=== PATIENT | female | born 1965 | race Caucasian/White ===

== ENCOUNTER → 2017-01-02 | Outpatient (CLI) | payer BC ==
[~2017-01-02] MED LIST: CHOL10003 PO; PHEN37.53 PO; TOPI25TA32 PO
[2017-01-02 16:02] LABS: BLOOD UREA NITROGEN 14 mg/dL (7-18)
== END | disposition home or self-care (01) ==
LOC: STAR 14:48
PROVIDERS: ATTEND Surgery
DX: Z01.818 Encounter for other preprocedural examination (principal); C50.811 Malignant neoplasm of overlapping sites of right female breast
CPT/HCPCS: 36415; 80048

== ENCOUNTER → 2017-01-03 | Outpatient (CLI) | payer BC | END | disposition home or self-care (01) | LOC: PETCFH 07:53 | PROVIDERS: ATTEND Surgery | DX: C50.811 Malignant neoplasm of overlapping sites of right female breast (principal) | CPT/HCPCS: 78306; A9503 ==

== ENCOUNTER → 2017-01-03 | Outpatient (CLI) | payer BC ==
[~2017-01-03] MED LIST changes: +OMNIPAQUE 350 MG/ML, 100ML BOTTLE ONE
== END | disposition home or self-care (01) ==
LOC: CFH 07:50
PROVIDERS: ATTEND Surgery
DX: C50.811 Malignant neoplasm of overlapping sites of right female breast (principal); N63 Unspecified lump in breast; Z90.49 Acquired absence of other specified parts of digestive tract; M41.86 Other forms of scoliosis, lumbar region
CPT/HCPCS: 71260; 74177; Q9967

== ENCOUNTER → 2017-01-09 | Outpatient (CLI) | payer BC ==
[~2017-01-09] MED LIST changes: +GADOBUTROL 10 MMOL/10 ML VIAL ONE; -OMNIPAQUE 350 MG/ML, 100ML BOTTLE ONE
== END | disposition home or self-care (01) ==
LOC: CFH 11:29
PROVIDERS: ATTEND Internal Medicine Hematology & Oncology
DX: Z51.11 Encounter for antineoplastic chemotherapy (principal); C50.211 Malignant neoplasm of upper-inner quadrant of right female breast; R59.0 Localized enlarged lymph nodes; I36.1 Nonrheumatic tricuspid (valve) insufficiency
CPT/HCPCS: 93306; A9585; C8905

== ENCOUNTER 2017-01-10 06:54 | Day surgery (SDC) | payer BC ==
[~2017-01-10] VITALS: Ht 157.5 cm; Wt 79.5 kg
[~2017-01-10 06:54] MED LIST changes: -GADOBUTROL 10 MMOL/10 ML VIAL ONE
[2017-01-10] MEDS ORDERED: HEPARIN 1,000 UNITS/ML, 10ML ONE (07:19)
[2017-01-10] MEDS ORDERED: BUPIVACAINE/PF-EPI 0.5% 1:200K ONE (07:19)
[2017-01-10 07:22] VITALS: BP 134/87
[2017-01-10] MEDS ORDERED: LIDOCAINE 1%, 2ML ONE (07:35)
[2017-01-10] MEDS ORDERED: FENTANYL PF 250 MCG/5ML ONE (09:04)
[2017-01-10] MEDS ORDERED: MIDAZOLAM 1 MG/ML, 2ML ONE (09:05)
[2017-01-10] MEDS ORDERED: PHENYLEPHRINE 10 MG/ML ONE (09:42)
[2017-01-10] MEDS ORDERED: PROPOFOL 10 MG/ML, 20ML ONE (09:42)
[2017-01-10] MEDS ORDERED: ONDANSETRON 2MG/ML, 2ML ONE (09:42)
[2017-01-10] MEDS ORDERED: DEXAMETHASONE 4 MG/ML, 5ML ONE (09:42)
[2017-01-10] MEDS ORDERED: CEFAZOLIN 1,000 MG ONE (09:42)
[2017-01-10] MEDS ORDERED: KETOROLAC 30 MG/1 ML ONE (09:42)
[2017-01-10] MEDS ORDERED: HYDROmorphone 1 MG/ML, 1ML IV PRN (10:30)
[2017-01-10] MEDS ORDERED: MEPERIDINE/PF 25MG/0.5ML IVPush PRN (10:30)
[2017-01-10] MEDS ORDERED: MIDAZOLAM 1 MG/ML, 2ML IV PRN (10:30)
[2017-01-10] MEDS ORDERED: OXYcodone 5 MG/5 ML ORAL.SOL UDC PO PRN (10:30)
[2017-01-10] MEDS ORDERED: ONDANSETRON 2MG/ML, 2ML IVPush PRN (10:30)
[2017-01-10] MEDS ORDERED: hydrALAzine 20 MG/ML, 1ML IV PRN (10:30)
[2017-01-10] MEDS ORDERED: ACETAMINOPHEN 325 MG TABLET PO PRN (10:30)
[2017-01-10] MEDS ORDERED: FENTANYL PF 100 MCG/2ML IV PRN (10:30)
[2017-01-10] MEDS ORDERED: METOCLOPRAMIDE 5 MG/ML, 2ML IV PRN (10:30)
[2017-01-10] MEDS ORDERED: PROMETHAZINE 25 MG/ML, 1ML IV PRN (10:30)
[2017-01-10] MEDS ORDERED: LABETALOL 5MG/ML, 20ML IV PRN (10:30)
== END 2017-01-10 11:50 | disposition home or self-care (01) ==
LOC: OUT 06:54
PROVIDERS: ATTEND Surgery
DX: C50.811 Malignant neoplasm of overlapping sites of right female breast (principal); G43.909 Migraine, unspecified, not intractable, without status migrainosus; Z85.820 Personal history of malignant melanoma of skin; Z90.710 Acquired absence of both cervix and uterus; Z72.89 Other problems related to lifestyle; Z83.3 Family history of diabetes mellitus; Z80.6 Family history of leukemia; Z80.0 Family history of malignant neoplasm of digestive organs; Z80.1 Family history of malignant neoplasm of trachea, bronchus and lung
CPT/HCPCS: 36561; 71010; 77001; C1788; J0690; J1100; J1644; J1885; J2250; J2370; J2405; J2704; J3010; 76000

== ENCOUNTER → 2017-04-09 | Outpatient (CLI) | payer BC | END | disposition home or self-care (01) | LOC: CFH 13:58 | PROVIDERS: ATTEND Internal Medicine Hematology & Oncology | DX: I51.89 Other ill-defined heart diseases (principal); C50.211 Malignant neoplasm of upper-inner quadrant of right female breast; I07.1 Rheumatic tricuspid insufficiency | CPT/HCPCS: 93306 ==

== ENCOUNTER → 2017-05-08 | Outpatient (CLI) | payer BC ==
[~2017-05-08] MED LIST changes: +GADOBUTROL 10 MMOL/10 ML VIAL ONE
== END | disposition home or self-care (01) ==
LOC: CFH 10:19
PROVIDERS: ATTEND Internal Medicine Hematology & Oncology
DX: C50.211 Malignant neoplasm of upper-inner quadrant of right female breast (principal); Z92.21 Personal history of antineoplastic chemotherapy; Z90.11 Acquired absence of right breast and nipple
CPT/HCPCS: A9585; C8908

== ENCOUNTER 2017-06-05 11:50 | Observation (INO) | payer BC ==
[2017-06-04 11:20] VITALS: BP 142/85
[~2017-06-05] VITALS: Ht 157.5 cm; Wt 81.8 kg
[~2017-06-05 11:50] MED LIST changes: -GADOBUTROL 10 MMOL/10 ML VIAL ONE; +MULT-658 PO
[2017-06-05] MEDS ORDERED: LACTATED RINGERS 1,000 ML IV SCH ×2 (12:13→20:00)
[2017-06-05] MEDS ORDERED: PROPOFOL 10 MG/ML, 20ML ONE ×2 (15:49)
[2017-06-05] MEDS ORDERED: ONDANSETRON 2MG/ML, 2ML ONE ×2 (15:49→19:00)
[2017-06-05] MEDS ORDERED: CEFAZOLIN 1,000 MG ONE (15:49)
[2017-06-05] MEDS ORDERED: DEXAMETHASONE 4 MG/ML, 1ML ONE (15:49)
[2017-06-05] MEDS ORDERED: BUPIVACAINE/PF-EPI 0.5% 1:200K INFIL ONE (16:17)
[2017-06-05] MEDS ORDERED: BACITRACIN 50,000 UNIT IRRIG ONE (16:18)
[2017-06-05] MEDS ORDERED: CEFAZOLIN 1,000 MG IVPush ONE (16:19)
[2017-06-05] MEDS ORDERED: GENTAMICIN 80 MG/2 ML IVPB ONE (16:20)
[2017-06-05] MEDS ORDERED: OXYcodone 5 MG/5 ML ORAL.SOL UDC PO PRN (16:30)
[2017-06-05] MEDS ORDERED: ACETAMINOPHEN 325 MG TABLET PO PRN (16:30)
[2017-06-05] MEDS ORDERED: EPHEDRINE 50 MG/ML, 1ML IVPush PRN (16:30)
[2017-06-05] MEDS ORDERED: LABETALOL 5MG/ML, 20ML IV PRN (16:30)
[2017-06-05] MEDS ORDERED: HYDROcodone/APAP 7.5-325MG/15ML UDC PO PRN (16:30)
[2017-06-05] MEDS ORDERED: ONDANSETRON 2MG/ML, 2ML IVPush PRN ×2 (16:30→20:00)
[2017-06-05] MEDS ORDERED: PROMETHAZINE 25 MG/ML, 1ML IV PRN (16:30)
[2017-06-05] MEDS ORDERED: MEPERIDINE/PF 25MG/0.5ML IVPush PRN (16:30)
[2017-06-05] MEDS ORDERED: MIDAZOLAM 1 MG/ML, 2ML IV PRN (16:30)
[2017-06-05] MEDS ORDERED: hydrALAzine 20 MG/ML, 1ML IV PRN ×2 (16:30→23:00)
[2017-06-05] MEDS ORDERED: FENTANYL PF 100 MCG/2ML ONE (17:39)
[2017-06-05] MEDS ORDERED: OXYcodone 5 MG/5 ML ORAL.SOL UDC ONE (17:39)
[2017-06-05] MEDS ORDERED: ACETAMINOPHEN 325 MG TABLET ONE (17:39)
[2017-06-05] MEDS ORDERED: ACETAMINOPHEN 650 MG/20.3 ML UDC ONE (17:39)
[2017-06-05] MEDS ORDERED: ISOSULFAN BLUE 10 MG/ML, 5ML IV ONE (17:40)
[2017-06-05] MEDS: FENTANYL PF 100 MCG/2ML IV PRN ×2 (17:42→18:03)
[2017-06-05] MEDS ORDERED: HYDROmorphone 1 MG/ML, 1ML ONE ×2 (18:11→18:33)
[2017-06-05] MEDS: HYDROmorphone 1 MG/ML, 1ML IV PRN ×4 (18:14→18:43)
[2017-06-05 19:35] VITALS: BP 142/79
[2017-06-05] MEDS ORDERED: HYDROmorphone 2 MG/ML, 1ML IV PRN (20:00)
[2017-06-05] MEDS: DIPHENHYDRAMINE 50 MG/ML, 1ML IVPush PRN ×2 (20:07→20:37)
[2017-06-05] MEDS ORDERED: ENALAPRILAT 1.25 MG/ML, 2ML IV PRN (23:00)
[2017-06-05] MEDS ORDERED: DIPHENHYDRAMINE 50 MG/ML, 1ML IV PRN (23:00)
[2017-06-05] MEDS ORDERED: morphine SULFATE 10 MG/ML, 1ML IV PRN (23:00)
[2017-06-05] MEDS ORDERED: ONDANSETRON 2MG/ML, 2ML IV PRN (23:00)
[2017-06-05] MEDS ORDERED: DIPHENHYDRAMINE 25 MG CAPSULE PO PRN (23:00)
[2017-06-05] MEDS: CEFAZOLIN PMX 2GM/100ML 100 ML IVPB SCH (23:40)
[2017-06-05] MEDS: POTASSIUM CHLORIDE 20 MEQ in D5%-0.45% NACL 1,000 ML IV SCH (23:40)
[2017-06-06] VITALS: BP 109/67
[2017-06-06 04:05] VITALS: BP 125/70
[2017-06-06 06:30] VITALS: BP 111/61
[2017-06-06] MEDS: POTASSIUM CHLORIDE 20 MEQ in D5%-0.45% NACL 1,000 ML IV SCH (06:36)
[2017-06-06] MEDS: CEFAZOLIN PMX 2GM/100ML 100 ML IVPB SCH (08:00)
== END 2017-06-06 08:30 | disposition home or self-care (01) ==
LOC: OR 11:50 → 4NOR 19:10 → OR 19:56 → 4NOR 19:56 → UNDOADMIN 19:56 → 4NOR 22:25
PROVIDERS: ADMIT Plastic Surgery; ATTEND Plastic Surgery
DX: C50.811 Malignant neoplasm of overlapping sites of right female breast (principal); G43.909 Migraine, unspecified, not intractable, without status migrainosus; K91.89 Other postprocedural complications and disorders of digestive system; Z17.0 Estrogen receptor positive status [ER+]
CPT/HCPCS: 19303; 38525; 38792; 88307; 88333; 96365; 96375; A9541; C9898; G0378; J0690; J1100; J1170; J1200; J1580; J2250; J2405; J2704; J3010; J3480; J3490; J7120

== ENCOUNTER → 2017-07-04 | Outpatient (CLI) | payer BC | END | disposition home or self-care (01) | LOC: ROC 10:01 | PROVIDERS: ATTEND Radiology Radiation Oncology | DX: C50.811 Malignant neoplasm of overlapping sites of right female breast (principal) | CPT/HCPCS: 99214; G0463 ==

== ENCOUNTER → 2017-07-23 | Outpatient (CLI) | payer BC | END | disposition home or self-care (01) | LOC: CVU 09:28 | PROVIDERS: ATTEND Internal Medicine Hematology & Oncology | DX: I51.89 Other ill-defined heart diseases (principal); C50.211 Malignant neoplasm of upper-inner quadrant of right female breast | CPT/HCPCS: 93306 ==

== ENCOUNTER → 2017-10-16 | Outpatient (CLI) | payer BC | END | disposition home or self-care (01) | LOC: CFH 14:24 | PROVIDERS: ATTEND Internal Medicine Hematology & Oncology | DX: C50.211 Malignant neoplasm of upper-inner quadrant of right female breast (principal); Z92.21 Personal history of antineoplastic chemotherapy | CPT/HCPCS: 93306 ==

== ENCOUNTER → 2017-12-18 | Outpatient (CLI) | payer BC | END | disposition home or self-care (01) | LOC: CFH 07:57 | PROVIDERS: ATTEND Internal Medicine Hematology & Oncology | DX: Z12.31 Encounter for screening mammogram for malignant neoplasm of breast (principal); Z85.3 Personal history of malignant neoplasm of breast | CPT/HCPCS: 77063; 77067 ==

== ENCOUNTER → 2017-12-25 | Outpatient (CLI) | payer BC ==
[~2017-12-25] MED LIST changes: +GADOBUTROL 10 MMOL/10 ML VIAL ONE
== END | disposition home or self-care (01) ==
LOC: CFH 11:57
PROVIDERS: ATTEND Internal Medicine Hematology & Oncology
DX: R90.82 White matter disease, unspecified (principal); C50.911 Malignant neoplasm of unspecified site of right female breast; C79.31 Secondary malignant neoplasm of brain
CPT/HCPCS: 70553; A9585

== ENCOUNTER → 2018-12-21 | Outpatient (CLI) | payer BC ==
[~2018-12-21] MED LIST changes: -GADOBUTROL 10 MMOL/10 ML VIAL ONE
== END | disposition home or self-care (01) ==
LOC: CFH 12:42
PROVIDERS: ATTEND Internal Medicine Hematology & Oncology
DX: Z12.31 Encounter for screening mammogram for malignant neoplasm of breast (principal); M81.0 Age-related osteoporosis without current pathological fracture; Z85.3 Personal history of malignant neoplasm of breast
CPT/HCPCS: 77063; 77080; 77067